=== PATIENT | male | born 1995 | race Caucasian/White ===

== ENCOUNTER 2022-09-20 19:40 | Emergency (ER) | payer OTHER ==
[~2022-09-20] VITALS: Ht 182.9 cm; Wt 104.2 kg
[2022-09-20 19:41] VITALS: BP 123/74; TEMP 97; O2SAT 100
== END 2022-09-21 04:15 | disposition left against medical advice (07) ==
LOC: M ED 19:40
DX: Z53.21 Procedure and treatment not carried out due to patient leaving prior to being seen by health care provider (principal)